=== PATIENT | male | born 1975 | race Caucasian/White ===

== ENCOUNTER 2016-11-26 18:06 | Inpatient (IN) | payer OTHER ==
[~2016-11-26 18:06] MED LIST: ALLOPURINOL100 MG PO; ATORVASTATIN CA20 M1 PO; AVODART0.5 MG; BACTRIM DS TAB1 EAC2 PO; BYSTOLIC10 M1 PO; CLARITIN10 M8 PO; FLUOCINONIDE15 GM TP; LEVAQUIN500 M1 PO; LEVAQUIN750 MG PO; LIPITOR10 MG; LORTAB 5-325 M1 EAC1 PO; LORTAB 7.5/5001 TAB PO; LOVENOX100 MG/1 M SC; MIDODRINE HCL10 M1 PO; NORCO 5/3251 TA1 PO; NORCO 7.5/325 T1 TAB; OXYGEN; POTASSIUM CHLO10 ME1 PO; PREDNISONE10 M1 PO; PREVACID30 M1 PO; PREVACID30 M2 PO; PREVACID30 MG; PROSCAR5 M1 PO; SLOW I PO; SYNTHROID; SYNTHROID100 MC1 PO; TUMS; VALTREX500 M1 PO; VENTOLIN HFA18 G2 PO; VITAMIN B122500 MCG PO; VITAMIN D35000 UNI2 PO; VITAMIN D50000 UNI1 PO; XARELTO20 M1 PO; ZOFRAN4 M2 PO; ZYLOPRIM100 M1 PO; ZYLOPRIM300 M1 PO
[2016-11-26] MEDS ORDERED: LEVAQUIN500 M1 PO (18:24)
[2016-11-26] MEDS ORDERED: DELTASONE20 MG PO (18:25)
[2016-11-26 19:25] LABS: HCT-HEMATOCRIT 31.8 % (36.0-53.5); HGB-HEMOGLOBIN 10.8 gm/dl (13.5-17.0); MCV (MEAN CELL VOLUME) 85.5 fl (82.0-96.0); MEAN PLATELET VOLUME 9.8 cmc (9.4-12.4); PLATELET COUNT 460 tho/cmm (150-450); RED BLOOD COUNT 3.72 mil/cmm (4.40-5.70); RED CELL DISTRIBUTION WIDTH 23.4 % (12.4-16.4)
[2016-11-26 19:26] LABS: BASO % 0.8 % (0-2); IMMATURE GRANULOCYTES ABSOLUTE 0.02 tho/cmm (0-0.03); IMMATURE GRANULOCYTES PERCENT 1.6 % (0-0.3); LYMPH % 5.7 % (20-45); LYMPH ABSOLUTE COUNT 0.1 tho/cmm (0.8-4.5); MONO % 12.3 % (0-12); MONOCYTE ABSOLUTE COUNT 0.2 tho/cmm (0.0-1.2); NEUTROPHILS % 79.6 % (40-80)
[2016-11-26 19:28] LABS: ALB/GLOB RATIO 0.8 (0.8-2.0); ALBUMIN 2.8 g/dl (3.5-5.0); ALKALINE PHOSPHATASE 127 U/L (33-138); ALT/SGPT 59 U/L (12-78); ANION GAP 16 mmol/L (0-20); AST/SGOT 68 U/L (10-40); BILIRUBIN,TOTAL 0.5 mg/dl (0.0-1.5); BLOOD UREA NITROGEN 21 mg/dl (6-24); CALCIUM 8.6 mg/dl (8.5-10.5); CARBON DIOXIDE-VENOUS 20 mmol/L (22-32); CHLORIDE 100 mmol/l (96-110); CREATININE 1.02 mg/dl (0.60-1.30); GLUCOSE 95 mg/dL (70-110); POTASSIUM 3.9 mmol/L (3.7-5.1); SODIUM 132 mmol/L (135-145); WHITE BLOOD COUNT 1.2 tho/cmm (4.0-10.0); eGFR VALUE FOR BLACK >90 mL/Min
[2016-11-26 19:29] LABS: INR 1.1 INR (0.9-1.1); PROTHROMBIN TIME 13.3 SECONDS (9.0-13.6)
[2016-11-26 23:42] LABS: ABG CO2 ARTERIAL 19 mmol/L (21-27); ARTERIAL BLD GAS O2 SATURATION 90 % (95-98); ARTERIAL BLOOD GAS PCO2 27 mmHg (32-45); ARTERIAL PO2 59 mmHg (70-100); BICARBONATE 18 mmol/L (21-28); BLOOD GAS BASE EXCESS -5 mM/L (-/+3); PH 7.44 Units (7.35-7.45)
[2016-11-27 00:08] LABS: PROCALCITONIN 0.45 ng/ml (0.05-0.09)
[2016-11-27 02:12] LABS: HCT-HEMATOCRIT 29.1 % (36.0-53.5); HGB-HEMOGLOBIN 9.9 gm/dl (13.5-17.0); MCH (MEAN CORPUSCULAR HGB) 29.2 pg (28.0-32.0); MCV (MEAN CELL VOLUME) 85.8 fl (82.0-96.0); MEAN PLATELET VOLUME 9.7 cmc (9.4-12.4); NEUTROPHIL-AUTOMATED 1.4 tho/cmm (1.6-8.0); PLATELET COUNT 439 tho/cmm (150-450); RED BLOOD COUNT 3.39 mil/cmm (4.40-5.70); RED CELL DISTRIBUTION WIDTH 23.3 % (12.4-16.4)
[2016-11-27 02:24] LABS: IMMATURE GRANULOCYTES ABSOLUTE 0.02 tho/cmm (0-0.03); IMMATURE GRANULOCYTES PERCENT 1.2 % (0-0.3); LYMPH % 4.3 % (20-45); LYMPH ABSOLUTE COUNT 0.1 tho/cmm (0.8-4.5); MONO % 8.6 % (0-12); MONOCYTE ABSOLUTE COUNT 0.1 tho/cmm (0.0-1.2); NEUTROPHIL ABSOLUTE COUNT 1.4 tho/cmm (1.6-8.0); NEUTROPHILS % 85.9 % (40-80)
[2016-11-27 02:25] LABS: WHITE BLOOD COUNT 1.6 tho/cmm (4.0-10.0)
[2016-11-27 02:29] LABS: ALB/GLOB RATIO 0.9 (0.8-2.0); ALBUMIN 2.4 g/dl (3.5-5.0); ALKALINE PHOSPHATASE 112 U/L (33-138); ALT/SGPT 56 U/L (12-78); ANION GAP 12 mmol/L (0-20); AST/SGOT 67 U/L (10-40); BILIRUBIN,TOTAL 0.6 mg/dl (0.0-1.5); BLOOD UREA NITROGEN 18 mg/dl (6-24); CALCIUM 7.7 mg/dl (8.5-10.5); CARBON DIOXIDE-VENOUS 21 mmol/L (22-32); CHLORIDE 107 mmol/l (96-110); CREATININE 0.85 mg/dl (0.60-1.30); GLUCOSE 110 mg/dL (70-110); POTASSIUM 3.7 mmol/L (3.7-5.1); SODIUM 136 mmol/L (135-145); eGFR VALUE FOR BLACK >90 mL/Min
[2016-11-27 06:23] LABS: URINE BILIRUBIN NEGATIVE (NEG); URINE BLOOD MODERATE (NEG); URINE GLUCOSE (UA) NEGATIVE (NEG); URINE KETONE NEGATIVE (NEG); URINE LEUKOCYTE ESTERASE NEGATIVE (NEG); URINE NITRITE NEGATIVE (NEG); URINE PROTEIN NEGATIVE (NEG); URINE SPECIFIC GRAVITY 1.005 (1.003-1.030)
[2016-11-27 06:25] LABS: URINE APPEARANCE CLEAR; URINE COLOR PALE YELLOW
[2016-11-27 06:26] LABS: ABG CO2 ARTERIAL 16 mmol/L (21-27); ARTERIAL BLD GAS O2 SATURATION 95 % (95-98); ARTERIAL BLOOD GAS PCO2 27 mmHg (32-45); ARTERIAL PO2 71 mmHg (70-100); BICARBONATE 18 mmol/L (21-28); BLOOD GAS BASE EXCESS -5 mM/L (-/+3); PH 7.44 Units (7.35-7.45)
[2016-11-27 06:37] LABS: URINE EPITHELIAL CELLS 0 /[HPF] (0-10); URINE WBC 0 /[HPF] (0-5)
[2016-11-28 03:31] LABS: ABG CO2 ARTERIAL 19 mmol/L (21-27); ARTERIAL BLD GAS O2 SATURATION 94 % (95-98); ARTERIAL BLOOD GAS PCO2 29 mmHg (32-45); ARTERIAL PO2 71 mmHg (70-100); BICARBONATE 18 mmol/L (21-28); BLOOD GAS BASE EXCESS -5 mM/L (-/+3); PH 7.41 Units (7.35-7.45)
[2016-11-28 04:33] LABS: HCT-HEMATOCRIT 26.5 % (36.0-53.5); HGB-HEMOGLOBIN 8.8 gm/dl (13.5-17.0); IMMATURE GRANULOCYTES ABSOLUTE 0.03 tho/cmm (0-0.03); IMMATURE GRANULOCYTES PERCENT 0.6 % (0-0.3); LYMPH % 1.4 % (20-45); LYMPH ABSOLUTE COUNT 0.1 tho/cmm (0.8-4.5); MCH (MEAN CORPUSCULAR HGB) 28.3 pg (28.0-32.0); MCHC MEAN CORPUSCULAR HGB CONC 33.2 % (32.0-36.0); MCV (MEAN CELL VOLUME) 85.2 fl (82.0-96.0); MEAN PLATELET VOLUME 10.4 cmc (9.4-12.4); MONOCYTE ABSOLUTE COUNT 0.2 tho/cmm (0.0-1.2); NEUTROPHIL ABSOLUTE COUNT 4.7 tho/cmm (1.6-8.0); NEUTROPHIL-AUTOMATED 4.7 tho/cmm (1.6-8.0); PLATELET COUNT 382 tho/cmm (150-450); RED BLOOD COUNT 3.11 mil/cmm (4.40-5.70); RED CELL DISTRIBUTION WIDTH 23.1 % (12.4-16.4)
[2016-11-28 04:45] LABS: ALBUMIN 2.8 g/dl (3.5-5.0); ALKALINE PHOSPHATASE 106 U/L (33-138); ALT/SGPT 49 U/L (12-78); ANION GAP 15 mmol/L (0-20); AST/SGOT 51 U/L (10-40); BILIRUBIN,TOTAL 0.5 mg/dl (0.0-1.5); BLOOD UREA NITROGEN 15 mg/dl (6-24); C-REACTIVE PROTEIN 2.7 mg/dl (0-0.9); CALCIUM 8.2 mg/dl (8.5-10.5); CARBON DIOXIDE-VENOUS 20 mmol/L (22-32); CHLORIDE 107 mmol/l (96-110); CREATININE 0.82 mg/dl (0.60-1.30); PREALBUMIN 15.5 mg/dl (20.0-40.0); SODIUM 138 mmol/L (135-145); eGFR VALUE FOR BLACK >90 mL/Min
[2016-11-28 05:37] LABS: GLUCOSE 192 mg/dL (70-110)
[2016-11-28 23:12] LABS: ABG CO2 ARTERIAL 19 mmol/L (21-27); ARTERIAL BLD GAS O2 SATURATION 93 % (95-98); ARTERIAL BLOOD GAS PCO2 29 mmHg (32-45); ARTERIAL PO2 67 mmHg (70-100); BICARBONATE 18 mmol/L (21-28); BLOOD GAS BASE EXCESS -6 mM/L (-/+3)
[2016-11-29 03:35] LABS: BASO % 0.3 % (0-2); HCT-HEMATOCRIT 26.2 % (36.0-53.5); HGB-HEMOGLOBIN 8.8 gm/dl (13.5-17.0); IMMATURE GRANULOCYTES ABSOLUTE 0.03 tho/cmm (0-0.03); IMMATURE GRANULOCYTES PERCENT 0.8 % (0-0.3); LYMPH % 2.4 % (20-45); LYMPH ABSOLUTE COUNT 0.1 tho/cmm (0.8-4.5); MCH (MEAN CORPUSCULAR HGB) 28.6 pg (28.0-32.0); MCHC MEAN CORPUSCULAR HGB CONC 33.6 % (32.0-36.0); MCV (MEAN CELL VOLUME) 85.1 fl (82.0-96.0); MEAN PLATELET VOLUME 10.4 cmc (9.4-12.4); MONOCYTE ABSOLUTE COUNT 0.2 tho/cmm (0.0-1.2); NEUTROPHIL ABSOLUTE COUNT 3.5 tho/cmm (1.6-8.0); NEUTROPHIL-AUTOMATED 3.5 tho/cmm (1.6-8.0); NEUTROPHILS % 91.5 % (40-80); PLATELET COUNT 325 tho/cmm (150-450); RED BLOOD COUNT 3.08 mil/cmm (4.40-5.70); RED CELL DISTRIBUTION WIDTH 23.4 % (12.4-16.4); WHITE BLOOD COUNT 3.8 tho/cmm (4.0-10.0)
[2016-11-29 04:04] LABS: ALB/GLOB RATIO 0.9 (0.8-2.0); ALBUMIN 2.5 g/dl (3.5-5.0); ALKALINE PHOSPHATASE 122 U/L (33-138); ALT/SGPT 49 U/L (12-78); ANION GAP 15 mmol/L (0-20); AST/SGOT 51 U/L (10-40); BILIRUBIN,TOTAL 0.4 mg/dl (0.0-1.5); BLOOD UREA NITROGEN 18 mg/dl (6-24); C-REACTIVE PROTEIN 1.7 mg/dl (0-0.9); CALCIUM 8.2 mg/dl (8.5-10.5); CARBON DIOXIDE-VENOUS 19 mmol/L (22-32); CHLORIDE 107 mmol/l (96-110); CREATININE 0.74 mg/dl (0.60-1.30); GLUCOSE 123 mg/dL (70-110); PHOSPHOROUS 3.5 mg/dl (2.5-4.9); POTASSIUM 4.1 mmol/L (3.7-5.1); SODIUM 137 mmol/L (135-145); eGFR VALUE FOR BLACK >90 mL/Min
[2016-11-29 04:17] LABS: PROCALCITONIN 0.25 ng/ml (0.05-0.09)
[2016-11-30 03:22] LABS: BASO % 0.3 % (0-2); HCT-HEMATOCRIT 28.2 % (36.0-53.5); HGB-HEMOGLOBIN 9.4 gm/dl (13.5-17.0); IMMATURE GRANULOCYTES ABSOLUTE 0.03 tho/cmm (0-0.03); LYMPH % 1.6 % (20-45); LYMPH ABSOLUTE COUNT 0.1 tho/cmm (0.8-4.5); MCH (MEAN CORPUSCULAR HGB) 28.3 pg (28.0-32.0); MCHC MEAN CORPUSCULAR HGB CONC 33.3 % (32.0-36.0); MCV (MEAN CELL VOLUME) 84.9 fl (82.0-96.0); MEAN PLATELET VOLUME 10.7 cmc (9.4-12.4); MONO % 4.8 % (0-12); MONOCYTE ABSOLUTE COUNT 0.2 tho/cmm (0.0-1.2); NEUTROPHIL ABSOLUTE COUNT 2.9 tho/cmm (1.6-8.0); NEUTROPHIL-AUTOMATED 2.9 tho/cmm (1.6-8.0); NEUTROPHILS % 92.3 % (40-80); PLATELET COUNT 308 tho/cmm (150-450); RED BLOOD COUNT 3.32 mil/cmm (4.40-5.70); RED CELL DISTRIBUTION WIDTH 23.2 % (12.4-16.4); WHITE BLOOD COUNT 3.2 tho/cmm (4.0-10.0)
[2016-11-30 03:37] LABS: ANION GAP 15 mmol/L (0-20); BLOOD UREA NITROGEN 26 mg/dl (6-24); C-REACTIVE PROTEIN 1.3 mg/dl (0-0.9); CALCIUM 8.5 mg/dl (8.5-10.5); CARBON DIOXIDE-VENOUS 20 mmol/L (22-32); CHLORIDE 106 mmol/l (96-110); CREATININE 0.87 mg/dl (0.60-1.30); GLUCOSE 138 mg/dL (70-110); POTASSIUM 3.9 mmol/L (3.7-5.1); SODIUM 137 mmol/L (135-145); eGFR VALUE FOR BLACK >90 mL/Min
[2016-11-30 04:45] LABS: PROCALCITONIN 0.31 ng/ml (0.05-0.09)
[2016-11-30 05:21] LABS: ABG CO2 ARTERIAL 21 mmol/L (21-27); ARTERIAL BLD GAS O2 SATURATION 94 % (95-98); ARTERIAL BLOOD GAS PCO2 29 mmHg (32-45); ARTERIAL PO2 68 mmHg (70-100); BICARBONATE 20 mmol/L (21-28); BLOOD GAS BASE EXCESS -3 mM/L (-/+3); PH 7.44 Units (7.35-7.45)
[2016-12-01 03:47] LABS: IMMATURE GRANULOCYTES ABSOLUTE 0.07 tho/cmm (0-0.03); IMMATURE GRANULOCYTES PERCENT 2.3 % (0-0.3); LYMPH % 2.3 % (20-45); LYMPH ABSOLUTE COUNT 0.1 tho/cmm (0.8-4.5); MCH (MEAN CORPUSCULAR HGB) 28.3 pg (28.0-32.0); MCHC MEAN CORPUSCULAR HGB CONC 33.3 % (32.0-36.0); MCV (MEAN CELL VOLUME) 84.9 fl (82.0-96.0); MEAN PLATELET VOLUME 11.4 cmc (9.4-12.4); MONOCYTE ABSOLUTE COUNT 0.1 tho/cmm (0.0-1.2); NEUTROPHIL ABSOLUTE COUNT 2.9 tho/cmm (1.6-8.0); NEUTROPHIL-AUTOMATED 2.9 tho/cmm (1.6-8.0); NEUTROPHILS % 93.4 % (40-80); PLATELET COUNT 280 tho/cmm (150-450); RED BLOOD COUNT 3.18 mil/cmm (4.40-5.70); RED CELL DISTRIBUTION WIDTH 23.1 % (12.4-16.4); WHITE BLOOD COUNT 3.1 tho/cmm (4.0-10.0)
[2016-12-01 03:49] LABS: BLOOD UREA NITROGEN 31 mg/dl (6-24); C-REACTIVE PROTEIN 0.9 mg/dl (0-0.9); CALCIUM 8.5 mg/dl (8.5-10.5); CARBON DIOXIDE-VENOUS 19 mmol/L (22-32); CHLORIDE 102 mmol/l (96-110); CREATININE 1.03 mg/dl (0.60-1.30); SODIUM 133 mmol/L (135-145); eGFR VALUE FOR BLACK >90 mL/Min
[2016-12-01 03:55] LABS: ANION GAP 16 mmol/L (0-20); GLUCOSE 209 mg/dL (70-110); POTASSIUM 3.9 mmol/L (3.7-5.1)
[2016-12-03 04:32] LABS: BASO % 0.2 % (0-2); HCT-HEMATOCRIT 31.9 % (36.0-53.5); HGB-HEMOGLOBIN 10.7 gm/dl (13.5-17.0); IMMATURE GRANULOCYTES ABSOLUTE 0.11 tho/cmm (0-0.03); IMMATURE GRANULOCYTES PERCENT 2.2 % (0-0.3); LYMPH % 2.7 % (20-45); LYMPH ABSOLUTE COUNT 0.1 tho/cmm (0.8-4.5); MCH (MEAN CORPUSCULAR HGB) 28.8 pg (28.0-32.0); MCHC MEAN CORPUSCULAR HGB CONC 33.5 % (32.0-36.0); MCV (MEAN CELL VOLUME) 85.8 fl (82.0-96.0); MONO % 1.8 % (0-12); MONOCYTE ABSOLUTE COUNT 0.1 tho/cmm (0.0-1.2); NEUTROPHIL ABSOLUTE COUNT 4.8 tho/cmm (1.6-8.0); NEUTROPHIL-AUTOMATED 4.8 tho/cmm (1.6-8.0); NEUTROPHILS % 93.1 % (40-80); PLATELET COUNT 202 tho/cmm (150-450); RED BLOOD COUNT 3.72 mil/cmm (4.40-5.70); RED CELL DISTRIBUTION WIDTH 23.9 % (12.4-16.4)
[2016-12-03 04:33] LABS: WHITE BLOOD COUNT 5.1 tho/cmm (4.0-10.0)
[2016-12-03 04:35] LABS: ANION GAP 15 mmol/L (0-20); BLOOD UREA NITROGEN 34 mg/dl (6-24); C-REACTIVE PROTEIN 1.2 mg/dl (0-0.9); CARBON DIOXIDE-VENOUS 20 mmol/L (22-32); CHLORIDE 103 mmol/l (96-110); CREATININE 1.02 mg/dl (0.60-1.30); GLUCOSE 133 mg/dL (70-110); POTASSIUM 4.7 mmol/L (3.7-5.1); SODIUM 133 mmol/L (135-145); eGFR VALUE FOR BLACK >90 mL/Min
== END 2016-12-03 18:20 | disposition expired | DRG 871 ==
LOC: EDMED 18:06 → EMR2 22:24 → CCU 22:50
PROVIDERS: Emergency Medicine; Family Medicine; Internal Medicine; Internal Medicine Critical Care Medicine; Internal Medicine Infectious Disease; Registered Nurse; ADMIT Hospitalist
DX: A41.9 Sepsis, unspecified organism (principal); D61.1 Drug-induced aplastic anemia; J96.21 Acute and chronic respiratory failure with hypoxia; D84.9 Immunodeficiency, unspecified; J18.9 Pneumonia, unspecified organism; B37.0 Candidal stomatitis; E44.1 Mild protein-calorie malnutrition; S27.309A Unspecified injury of lung, unspecified, initial encounter; C85.90 Non-Hodgkin lymphoma, unspecified, unspecified site; E03.9 Hypothyroidism, unspecified; K59.00 Constipation, unspecified; R65.20 Severe sepsis without septic shock; Z51.5 Encounter for palliative care; Z77.123 Contact with and (suspected) exposure to radon and other naturally occurring radiation; Z79.01 Long term (current) use of anticoagulants
CPT/HCPCS: C1751; C9113; J0692; J1447; J1450; J1650; J1940; J1956; J2060; J2250; J2270; J2930; J3370; J7030; J7040; J7050; P9045; Q9967